=== PATIENT | male | born 1960 | race Caucasian/White ===

== ENCOUNTER 2016-07-30 02:39 | Observation (INO) | payer MEDICARE, OTHER ==
[~2016-07-30] VITALS: Ht 182.9 cm; Wt 95.3 kg
[~2016-07-30 02:39] MED LIST: ABILIFY 5 MG TAB5 MG PO; ALBUTEROL2.5 MG/3 M NEB; ALTACE5 MG PO; ASPIRIN CHEWABL81 MG PO; ASPIRIN325 MG PO; BACLOFEN10 MG PO; BREO ELLIPTA 11 EACH PO; BREO ELLIPTA 200-25 INH; COGENTIN 2MG TAB2 MG PO; CYMBALTA30 MG PO; CYMBALTA60 MG PO; DALIRESP500 MCG PO; FENOFIBRATE200 MG PO; FLOMAX 0.4 MG0.4 MG PO; GABAPENTIN400 MG PO; GLUCOPHAGE 850850 MG PO; IPRAT-ALBUT 0.5-3 ML NEB; JARDIANCE25 MG PO; KLOR-CON M2020 MEQ PO; LASIX 40 MG TAB40 MG PO; LIORESAL TAB 1010 MG PO; LOVAZA1 GM PO; LUNESTA3 MG PO; METHADONE HCL10 MG PO; NEURONTIN 400400 MG PO; NITROSTAT 0.40.4 MG SL; OMEPRAZOLE40 MG PO; OXYCONTIN30 MG PO; PENICILLIN V P250 MG PO; PERCOCET 10-321 EACH PO; PROAIR HFA8.5 GM PO; REQUIP2 MG PO; SPIRIVA18 MCG PO; SYMBICORT 160-1 INHA INH; TERAZOSIN HCL5 MG PO; ZAROXOLYN/DIULO5 MG PO; ZOCOR80 MG PO
[2016-07-30 03:34] LABS: HEMOGLOBIN 18.3 gm/dl (14.0-17.5); RED BLOOD COUNT 6.68 M/UL (4.20-5.50); WHITE BLOOD COUNT 12.7 K/UL (4.5-11.0)
[2016-07-30 04:02] LABS: BUN/CREATININE RATIO 36 (0-10)
[2016-07-30] MEDS ORDERED: LYRICA150 MG PO (10:25)
[2016-07-30] MEDS ORDERED: COREG 3.125M3.125 MG PO (10:25)
[2016-07-30] MEDS ORDERED: BUSPIRONE HCL15 MG PO (10:35)
[2016-07-30] MEDS ORDERED: ATIVAN2 MG PO (10:42)
[2016-07-30] MEDS ORDERED: AMBIEN10 MG PO (10:43)
[2016-07-30] MEDS ORDERED: BELSOMRA20 MG PO (10:45)
[2016-07-30] MEDS ORDERED: OXYCONTIN40 MG PO (10:47)
[2016-07-30] MEDS ORDERED: OXYCODONE-ACET1 EACH PO (10:48)
[2016-07-30] MEDS ORDERED: LOVAZA1 GM PO (11:08)
[2016-07-30] MEDS ORDERED: ALLERGY10 MG PO (11:09)
[2016-07-30] MEDS ORDERED: SILDENAFIL20 MG PO (11:11)
[2016-07-30] MEDS ORDERED: LAC-HYDRIN FIV226 GM TOP (11:12)
[2016-07-30] MEDS ORDERED: SYMBICORT 160-1 INHA INH (11:13)
[2016-10-31] MEDS ORDERED: TRAZODONE HCL50 MG PO (09:03)
[2016-11-05] MEDS ORDERED: IPRAT-ALBUT 0.5-3 ML INH (10:58)
[2016-11-05] MEDS ORDERED: LEVAQUIN500 MG PO (11:00)
[2016-11-05] MEDS ORDERED: MEDROL4 MG PO (11:04)
[2016-11-05] MEDS ORDERED: NICOTINE PATCH1 EAC1 TD (11:51)
== END 2016-07-30 17:38 | disposition home or self-care (01) ==
LOC: ER1 02:39 → ZEROF 06:38 → M/S 06:38 → ZEROF 07:01 → M/S 08:42
PROVIDERS: Emergency Medicine; ADMIT Internal Medicine
DX: R07.9 Chest pain, unspecified (principal); I27.2 Other secondary pulmonary hypertension; J44.9 Chronic obstructive pulmonary disease, unspecified; I11.0 Hypertensive heart disease with heart failure; I50.9 Heart failure, unspecified; E11.9 Type 2 diabetes mellitus without complications; E66.2 Morbid (severe) obesity with alveolar hypoventilation; N40.0 Benign prostatic hyperplasia without lower urinary tract symptoms; F17.210 Nicotine dependence, cigarettes, uncomplicated; Z68.28 Body mass index [BMI] 28.0-28.9, adult; Z88.5 Allergy status to narcotic agent; Z79.51 Long term (current) use of inhaled steroids; Z79.82 Long term (current) use of aspirin; Z79.84 Long term (current) use of oral hypoglycemic drugs; Z79.891 Long term (current) use of opiate analgesic; Z79.899 Other long term (current) drug therapy; Z99.81 Dependence on supplemental oxygen; Z90.49 Acquired absence of other specified parts of digestive tract; Z98.890 Other specified postprocedural states
CPT/HCPCS: 36415; 71010; 80053; 82550; 82553; 83874; 83880; 84484; 85025; 93005; 94664; 99285; G0378